=== PATIENT | female | born 1960 | race Hispanic/Latino ===

== ENCOUNTER 2018-01-11 19:37 | Emergency (ER) | payer SELFPAY ==
[~2018-01-11] VITALS: Ht 157.5 cm; Wt 88.0 kg
--- OUTSIDE RECORDS SUMMARY | 2018-01-11 19:39 | XMS REPORT | Continuity of Care Document ---
Author Author [facility] Organization [facility] Address Unknown Phone Unavailable Care Team Providers Care Material Preparation Worker Name Role Phone MD Sandra, Chin SANTORO Unavailable Insurance Providers Payer name Policy type / Coverage type Policy ID Covered green party ID Policy Lynn AETNA (PPO) AETNA (PPO) AETNA (PPO) ALLIED BENEFIT SYSTEMS - AETNA (PPO) AETNA (PPO) AETNA (PPO) AETNA (PPO) AETNA (PPO) AETNA (PPO) AETNA (PPO) AETNA (PPO) AETNA (PPO) AETNA (PPO) AETNA (PPO) AETNA (PPO) AETNA (PPO) Encounters Encounter Performer Location Date Office Visit Chin Flores MD [facility] Jul 16, 2013 Allergies, Adverse Reactions, Alerts Type Substance Reaction Status Drug allergy PENICILLIN Active Drug allergy DMNICEF Active Problems Problem Effective Dates Problem Status VENTRAL HERNIA, INCISIONAL Jun 21, 2013 Active OVARIAN MASS Jun 21, 2013 Active OBESITY Jun 21, 2013 Active Procedures Date Description Comments Jun 21, 2013 smoking status smoker - current status unknown Medications Medication Instructions Start Date Status CHLORTHALIDONE 25 MG TABS Jun 21, 2013 Active Vital Signs Date Description Test Result Jun 21, 2013 height E&M - 8302-2 HEIGHT 61.5 in Jun 21, 2013 weight E&M - 3141-9 WEIGHT 224 lb Jun 21, 2013 temperature E&M TEMPERATURE 98.1 deg f Jun 21, 2013 pulse rate E&M - 8867-4 PULSE RATE 76 /min Jun 21, 2013 blood pressure, systolic - 8480-6 BP SYSTOLIC 141 mm Hg Jun 21, 2013 blood pressure, diastolic - 8462-4 BP DIASTOLIC 87 mm Hg Jul 11, 2013 weight E&M - 3141-9 WEIGHT 232 lb Jul 11, 2013 temperature E&M TEMPERATURE 98.3 deg f Jul 11, 2013 pulse rate E&M - 8867-4 PULSE RATE 68 /min Jul 11, 2013 blood pressure, systolic - 8480-6 BP SYSTOLIC 110 mm Hg Jul 11, 2013 blood pressure, diastolic - 8462-4 BP DIASTOLIC 71 mm Hg Jul 16, 2013 weight E&M - 3141-9 WEIGHT 226 lb Jul 16, 2013 temperature E&M TEMPERATURE 98.2 deg f Jul 16, 2013 pulse rate E&M - 8867-4 PULSE RATE 66 /min Jul 16, 2013 blood pressure, systolic - 8480-6 BP SYSTOLIC 119 mm Hg Jul 16, 2013 blood pressure, diastolic - 8462-4 BP DIASTOLIC 86 mm Hg
--- OUTSIDE RECORDS SUMMARY | 2018-01-11 19:39 | XMS REPORT | Continuity of Care Document ---
Author Author [facility] Organization [facility] Address Unknown Phone Unavailable Care Team Providers Care Patent Solicitor Name Role Phone MD Sandra, Chin SANTORO Unavailable Insurance Providers Payer name Policy type / Coverage type Policy ID Covered republican ID Policy Lynn AETNA (PPO) AETNA (PPO) AETNA (PPO) ALLIED BENEFIT SYSTEMS - AETNA (PPO) AETNA (PPO) AETNA (PPO) AETNA (PPO) AETNA (PPO) AETNA (PPO) AETNA (PPO) AETNA (PPO) AETNA (PPO) Encounters Encounter Performer Location Date Lab Report Chin Flores MD [facility] 2013 Allergies, Adverse Reactions, Alerts Type Substance [...]
--- OUTSIDE RECORDS SUMMARY | 2018-01-11 19:39 | XMS REPORT | Continuity of Care Document ---
Author Author [facility] Organization [facility] Address Unknown Phone Unavailable Care Team Providers Care Assistant Football Coach Name Role Phone MD Sandra, Chin SANTORO [...] Location Date Office Visit Chin Flores MD [facility] 350 Jul 11, 2013 Allergies, Adverse Reactions, Alerts Type Substance [...]
--- OUTSIDE RECORDS SUMMARY | 2018-01-11 19:39 | XMS REPORT | Continuity of Care Document ---
Author Author [facility] Organization [facility] Address Unknown Phone Unavailable Care Team Providers Care Medical Office Supervisor Name Role Phone MD Sandra, Chin SANTORO Unavailable Insurance Providers Payer name Policy type / Coverage type Policy ID Covered constitution party ID Policy Lynn AETNA (PPO) AETNA (PPO) AETNA (PPO) ALLIED BENEFIT SYSTEMS - AETNA (PPO) AETNA (PPO) AETNA (PPO) AETNA (PPO) AETNA (PPO) AETNA (PPO) AETNA (PPO) AETNA (PPO) Encounters Encounter Performer Location Date Lab Report Chin Flores MD [facility] [place] Jun 24, 2013 Allergies, Adverse Reactions, Alerts Type Substance [...]
--- OUTSIDE RECORDS SUMMARY | 2018-01-11 19:39 | XMS REPORT | Continuity of Care Document ---
Author Author [facility] Address Unknown Phone Unavailable Care Team Providers Care Factory Worker Name Role Phone MD Sandra, Chin SANTORO Unavailable Insurance Providers Payer name Policy type / Coverage type Policy ID Covered democrat ID Policy Lynn AETNA (PPO) AETNA (PPO) AETNA (PPO) ALLIED BENEFIT SYSTEMS - AETNA (PPO) AETNA (PPO) AETNA (PPO) AETNA (PPO) AETNA (PPO) AETNA (PPO) AETNA (PPO) AETNA (PPO) AETNA (PPO) AETNA (PPO) AETNA (PPO) AETNA (PPO) AETNA (PPO) AETNA (PPO) AETNA (PPO) Encounters Encounter Performer Location Date Office Visit Chin Flores MD [facility] General Surgery 350 August 06, 2013 Allergies, Adverse Reactions, Alerts Type Substance [...] - 8462-4 BP DIASTOLIC 86 mm Hg August 06, 2013 weight E&M - 3141-9 WEIGHT 232 lb August 06, 2013 temperature E&M TEMPERATURE 98.4 deg f August 06, 2013 pulse rate E&M - 8867-4 PULSE RATE 64 /min August 06, 2013 blood pressure, systolic - 8480-6 BP SYSTOLIC 144 mm Hg August 06, 2013 blood pressure, diastolic - 8462-4 BP DIASTOLIC 91 mm Hg
--- OUTSIDE RECORDS SUMMARY | 2018-01-11 19:39 | XMS REPORT | Continuity of Care Document ---
Author Author [facility] Interface Address Unknown Phone Unavailable Problems Problem Status Onset Date Classification Date Reported Comments Source VENTRAL HERNIA, INCISIONAL Active 06/21/2013 Condition 08/06/2013 Medical Group OVARIAN MASS Active 06/21/2013 Condition 08/06/2013 Medical Group OBESITY Active 06/21/2013 Condition 08/06/2013 Medical Group Medications Medication Details Route Status Patient Instructions Ordering Provider Order Date Source CHLORTHALIDONE 25 MG TABS Active 06/21/2013 Medical Group Allergies, Adverse Reactions, Alerts Substance Category Reaction Severity Reaction type Status Date Reported Comments Source PENICILLIN Drug allergy PENICILLIN 06/21/2013 Medical Group DMNICEF Drug allergy DMNICEF 06/21/2013 Medical Group Immunizations Immunization Date Given Site Status Last Updated Comments Source Results Order Name Results Value Reference Range Date Interpretation Comments Source Vital Signs Vital Sign Value Date Comments Source Weight 232 08/06/2013 Medical Group Temperature Oral (F) 98.4 F 08/06/2013 Medical Group Heart Rate 64 08/06/2013 [facility] Group Systolic (mm Hg) 144 08/06/2013 [facility] Group Diastolic (mm Hg) 91 08/06/2013 Medical Group Weight 226 07/16/2013 Medical Group Temperature Oral (F) 98.2 F 07/16/2013 Medical Group Heart Rate 66 07/16/2013 Medical Group Systolic (mm Hg) 119 07/16/2013 Medical Group Diastolic (mm Hg) 86 07/16/2013 Medical Group Weight 232 07/11/2013 [facility] Temperature Oral (F) 98.3 F 07/11/2013 Medical Group Heart Rate 68 07/11/2013 Medical Group Systolic (mm Hg) 110 07/11/2013 Medical Group Diastolic (mm Hg) 71 07/11/2013 Medical Group Height 61.5 06/21/2013 Medical Group Weight 224 06/21/2013 [facility] Temperature Oral (F) 98.1 F 06/21/2013 Medical Group Heart Rate 76 06/21/2013 [facility] Systolic (mm Hg) 141 06/21/2013 [facility] Diastolic (mm Hg) 87 06/21/2013 [facility] Encounters Location Location Details Encounter Type Encounter Number Reason For Visit Attending Provider ADM Date DC Date Status Source [facility] Lab Report [id number] Chin Flores MD 06/24/2013 06/24/2013 [facility] Lab Report [id number] Chin Flores MD 2013 2013 [facility] 350 Office Visit [id number] Chin Flores MD 07/11/2013 07/11/2013 [facility] 350 Office Visit [id number] Chin Flores MD 07/16/2013 07/16/2013 [facility] 350 Office Visit [id number] Chin Flores MD 08/06/2013 08/06/2013 [facility] Procedures Procedure Code Date Perfomer Comments Source
--- OUTSIDE RECORDS SUMMARY | 2018-01-11 19:39 | XMS REPORT | Continuity of Care Document ---
Author Author [facility] Organization [facility] Address Unknown Phone Unavailable Care Team Providers Care Ship'S Master Name Role Phone MD Sandra, Chin SANTORO Unavailable Insurance Providers Payer name Policy type / Coverage type Policy ID Covered democrat ID Policy Lynn AETNA (PPO) AETNA (PPO) AETNA (PPO) ALLIED BENEFIT SYSTEMS - AETNA (PPO) AETNA (PPO) AETNA (PPO) AETNA (PPO) AETNA (PPO) AETNA (PPO) AETNA (PPO) Encounters Encounter Performer Location Date Lab Report Chin Flores MD [facility] [place] Jun 24, 2013 Vital Signs Date Description Test Result Jun [...]
[2018-01-11] MEDS ORDERED: HYDROCODONE/APAP 10MG-325MG TAB PO ONE (20:30)
--- NOTE | 2018-01-11 21:34 | Diagnostic Imaging Report ---
KNEE LEFT THREE VIEWS Comparison: None Clinical history: Left knee pain Findings: No fracture or dislocation. Mild medial compartment predominant degenerative change. Impression: No acute bony abnormality Signed by: Dr Anabella Reyna MD on 01/11/2018 9:31 PM
== END 2018-01-11 21:45 | disposition home or self-care (01) ==
LOC: ER 19:37
DX: M25.562 Pain in left knee (principal); S83.92XA Sprain of unspecified site of left knee, initial encounter; R26.2 Difficulty in walking, not elsewhere classified; X50.1XXA Overexertion from prolonged static or awkward postures, initial encounter; Y92.008 Other place in unspecified non-institutional (private) residence as the place of occurrence of the external cause; I10 Essential (primary) hypertension
CPT/HCPCS: 99283